=== PATIENT | female | born 1990 | race Caucasian/White ===

== ENCOUNTER 2016-04-16 10:30 | Emergency (ER) | payer BC, OTHER ==
[2016-04-16 11:57] LABS: ABSOLUTE NEUTROPHIL COUNT 7.5 K/mm3 (1.8-7.7); BASO % 0.2 % (0.2-1.0); EOS % 0.4 % (0.9-2.9); HEMATOCRIT 43.2 % (37.0-47.0); HEMOGLOBIN 14.3 gm/l (12.0-16.0); IMM NEUT% 0.3 % (0-1); LYMPH # 0.7 (1.0-4.8); MEAN CELL VOLUME 89.4 fl (81.0-99.0); MEAN CORPUSCULAR HEMOGLOBIN 29.6 pg (27.0-31.0); MEAN CORPUSCULAR HGB CONC 33.1 g/dl (33.0-37.0); MEAN PLATELET VOLUME 10.2 fl (7.4-10.4); MONO # 0.9 (0.0-0.8); NEUT % 81.1 % (43-75); PLATELET COUNT 212 K/mm3 (130-400); RED CELL DISTRIBUTION WIDTH 12.1 % (11.5-14.5)
[2016-04-16] MEDS ORDERED: SODIUM CHLORIDE 0.9% 2,000 ML ONE (12:04)
[2016-04-16] MEDS ORDERED: FAMOTIDINE 10 MG/ML 2ML VIAL ONE (12:04)
[2016-04-16] MEDS ORDERED: ONDANSETRON 4 MG/2ML 2 ML VIAL ONE (12:04)
[2016-04-16 12:22] LABS: ALB/GLOB RATIO 1.2 (>1.0); ALBUMIN 3.8 gm/dL (3.5-5.7); CALCIUM 8.8 mg/dL (8.6-10.3)
[2016-04-16 12:22] LABS: SPECIFIC GRAVITY 1.015 (1.001-1.030); URINE BILIRUBIN NEGATIVE (NEGATIVE); URINE BLOOD NEGATIVE (NEGATIVE); URINE GLUCOSE (UA) NEGATIVE (NEGATIVE); URINE LEUKOCYTE ESTERASE NEGATIVE (NEGATIVE); URINE NITRITE NEGATIVE (NEGATIVE); URINE PROTEIN TRACE (NEGATIVE); URINE UROBILINOGEN NORMAL (0-1 mg/dl)
[2016-04-16 12:28] LABS: URINE COLOR AMBER
[2016-04-16 12:29] LABS: URINE APPEARANCE CLEAR
--- NOTE | 2016-04-16 12:44 | RAD ---
ABDOMEN 2 VIEWS W PA CHEST HISTORY: Abdomen pain with vomiting and diarrhea. COMPARISONS: None. FINDINGS: Supine and upright views of the abdomen and a single view chest were performed demonstrating air scattered throughout nondilated large and small bowel throughout the abdomen. There is no evidence to suggest free intraperitoneal air are observed. The osseous structures are intact. The heart size is appropriate. The lung rojas appear to be clear. IMPRESSION: 1. A nonspecific abdominal bowel gas pattern. No evidence of free intraperitoneal air is observed. 2. A negative single view chest.
[2016-04-16] MEDS ORDERED: KETOROLAC TROMETHAMINE 30 MG/ML 1 ML VIAL ONE (14:18)
== END 2016-04-16 14:30 | disposition home or self-care (01) ==
LOC: ED 10:30
DX: R11.2 Nausea with vomiting, unspecified (principal); R19.7 Diarrhea, unspecified; R55 Syncope and collapse
CPT/HCPCS: 83690; 84703; 85025; 80053; 81003; 74022; 96375 ×2; 99283 ×2; 96374; 96361 ×2; J1885; J2405; J7030